=== PATIENT | male | born 1990 | race Hispanic/Latino ===

== ENCOUNTER 2023-07-10 00:09 | Emergency (ER) | payer SELFPAY ==
[2023-07-10] MEDS ORDERED: Fluorescein Opthalmic Strip ONE (01:35)
[2023-07-10] MEDS ORDERED: Proparacaine 0.5% Opth 15 ML BOT ONE (01:36)
== END 2023-07-10 02:01 | disposition home or self-care (01) ==
LOC: CSHERS 00:09
DX: H57.12 Ocular pain, left eye (principal); H57.8A2 Foreign body sensation, left eye
CPT/HCPCS: 99283